=== PATIENT | female | born 1980 | race Caucasian/White ===

== ENCOUNTER 2022-03-08 01:37 | Day surgery (SDC) | payer OTHER, SELFPAY ==
[2022-03-02 10:28] VITALS: BMI 25.8
--- NOTE | 2022-03-02 10:36 | PC.NURSE ---
Report to the Outpatient Waiting Room, entrance under the green pavilion located off [facility], at time 0830 on date 03/08/22. OR Time: 1030. Time changes happen often and if your time is changed the preop area will call you the afternoon before. - You and your visitor will be asked to self-screen and do not enter if you have any COVID symptoms. - Only one visitor and NO children visitors are allowed at this time. - The patient visitor is requested to leave or wait in car when not with patient due to restrictions. - A mask is required within the hospital. Patients may have clear liquids (water, carbonated beverages, clear teas, apple juice) until 3 hours prior to surgery with a maximum of 20 ounces. - No food from midnight until time of surgery Take the following medications with a SIP of water the morning of surgery: NONE Medications to discontinue per physician: VITAMINS/SUPPLEMENTS Date to take last dose: 03/04/[address] PARSON FOR INSTRUCTIONS REGARDING ASPIRIN Please no make-up, nail hebrew, hairspray, perfume, deodorant, or body powder the day of surgery. No jewelry (including any body piercings) or valuables the day of surgery, leave them at home. Please take a shower or bath the night before, or the morning of, surgery with an antibacterial soap. Wear comfortable, loose fitting clothing. - Jewelry must be removed prior to entering the operating room. Rings and piercings that are not removed may be cut off. - The hospital will not accept responsibility for valuables. - Please leave all valuables, including medications, at home the day of surgery. If you are going home after surgery, a licensed company driver must drive you home. - NO public transportation without another adult. - We recommend that an adult stay with you for 24 hours following discharge. - We also recommend that you do not drive, make important decision, drink alcoholic beverages, or take any drugs that were not prescribed by your health care provider for at least 24 hours after your discharge time. Follow any additional instructions given to you from your surgeon. If you or anyone in your household have experienced Covid symptoms in the past week, please notify your surgeon or the nurse liaison at the phone number below for possible testing. Telephone instructions given to PT - TREVON HERRERA and asked if any additional questions and then verbalized understanding. Patient advised to call surgeon office or pre surgery nurse liaison [phone] if any additional questions.
--- NOTE | 2022-03-07 19:56 | PM.IMHP ---
H&P: HPI History of Present Illness Date/Time: 03/07/22 19:56 Chief Complaint: menorrhagia Narrative: Marion is a 41yo P1001, who presented for WWE in September 2021; pap normal 04/2020. She reports her cycles are starting to get much heavier; will soak a super plus tampon every hour. She had an US performed 10/2021 which showed a thickened lining concerning for endometrial polyp measuring 1.2cm. She is sexually active, but has pain. She has suspected endometriosis; reports severe pelvic/back pain/dyspareunia (like a vice around her whole lower abdomen). She tried orilissa last year but had issues with insurance and stopped it. her pain did improve a lot (still had dyspareunia though). It's slowly coming back. She's not sure what she would like to do. Has tried Mirena but had lots of spotting after 6 months. Does have a h/o stroke while smoking and being on OCPs (so cannot take estrogen). Review of Systems Review of Systems: All systems reviewed & are unremarkable except as noted in HPI and below PMFSH Past Medical History Medical History Mitral valve prolapse Stroke (~2016) Surgical History Surgical History H/O breast augmentation [place] teeth removed Family History Family History Mother Family history of malignant neoplasm of skin Social History Social History Years smoked: 10 Smoking status: Former smoker Tobacco type: cigarettes Second hand tobacco smoke exposure: No Smoking end date: 01/15/22 Alcohol intake: current Drinks per week: 10 Alcohol use details: socially Substance use: never Substance use type: does not use Living arrangements: with family Additional occupation/education comments: complex manager Gender identity (if verbalized by the patient): Female Spiritual care concerns: No Meds Home Medications and Allergies Home Medications Medication Instructions Recorded Confirmed Type aspirin 81 mg tablet,delayed 81 mg PO DAILY 09/18/21 03/02/22 History release (Adult Low Dose Aspirin) atorvastatin 10 mg tablet 10 mg PO DAILY 09/18/21 03/02/22 History arginine oxoglurate 350 mg 1,000 mg PO DAILY 03/02/22 03/02/22 History tablet,extended release (L-Arginine (alpha-ketoglutarate)) multivitamin 1 tablet PO DAILY 03/02/22 03/02/22 History Allergies Allergy/AdvReac Type Severity Reaction Status Date / Time No Known Allergies Allergy Unverified 03/02/22 10:26 Exam Const: General: cooperative, healthy appearing, comfortable and no acute distress Resp: Effort & Inspection: normal respiratory effort Cardio: Rate: regular rate GI: Inspection: normal to inspection GI Palp: No abdominal tenderness and Yes Soft to palpation : Other: deferred to OR Skin: General skin exam: normal color Neuro: General: patient oriented x3 Extrem: General: normal to inspection Psych: Appearance: grossly normal Affect: normal affect Attitude: cooperative Assessment and Plan Assessment and plan (1) Endometrial polyp: Code(s): N84.0 - Polyp of corpus uteri Status: Acute Plan - Proceed with hysteroscopy, D&C and polypectomy - Risks and benefits explained in detail - No abx ppx indicated
--- NOTE | 2022-03-08 07:02 | WPDHPUPDATE1 ---
History and Physical Update Update Date/Time: 03/08/22 07:02 History and Physical has been reviewed, including an updated exam of the patient. There are NO changes in the patient's condition. Risks, benefits, and alternatives have been discussed and questions answered. Patient agrees to proceed with procedure.
[2022-03-08] MEDS: ACETAMINOPHEN 500 MG TABLET 1000 MG PO (08:39)
[2022-03-08 08:48] VITALS: BP 145/87; PULSE 84; RESP 16; TEMP 36.8; O2SAT 100
[2022-03-08] MEDS: LACTATED RINGERS 1,000 ML 30 ML IV CONT (09:06)
--- NOTE | 2022-03-08 09:23 | P.PNAN_ITS ---
Anes - Initial Pre Proc Eval Procedure: Operation Date: 03/08/22 10:30 Proposed Procedures p Hysteroscopy Dilation and Curettage with Polypectomy - Stephanie Hyatt MD Date/Time: 03/08/22 09:23 Surgeon: Stephanie Hyatt MD Pre Op Diagnosis: endometrial polyp Patient Data Age: 42 Gender: F Height: 1.78 m Weight: 82.9 kg Last Vital Signs Temp 36.8 C 03/08/22 08:48 Pulse 84 03/08/22 08:48 Resp 16 03/08/22 08:48 BP 145/87 H 03/08/22 08:48 Pulse Ox 100 03/08/22 08:48 O2 Del Method Room Air 03/08/22 08:48 Allergies Allergy/AdvReac Type Severity Reaction Status Date / Time No Known Allergies Allergy Unverified 03/08/22 08:37 Home Medications Medication Instructions Recorded Confirmed Type aspirin 81 mg tablet,delayed 81 mg PO DAILY 09/18/21 03/08/22 History release (Adult Low Dose Aspirin) atorvastatin 10 mg tablet 10 mg PO DAILY 09/18/21 03/08/22 History arginine oxoglurate 350 mg 1,000 mg PO DAILY 03/02/22 03/08/22 History tablet,extended release (L-Arginine (alpha-ketoglutarate)) multivitamin 1 tablet PO DAILY 03/02/22 03/08/22 History Patient hx anesthesia problems: none Family hx anesthesia problems: none Results Review: All pre-operative results and documents have been reviewed as part of the pre- operative evaluation. 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 Informed Consent: The patient's anesthetic plan and its attendant risks and benefits were discussed with the patient/family/POA. Questions were solicited and answers provided to the satisfaction of the patient/family/POA.
[2022-03-08] MEDS: KETOROLAC 30 MG/ML VIAL (*BKC) IV PUSH (09:49)
[2022-03-08 10:18] VITALS: BP 128/84; PULSE 88; RESP 14
--- NOTE | 2022-03-08 10:18 | W.PM.PROC2 ---
Procedure Note - Detailed Date of Procedure 03/08/22 Pre-op Diagnosis endometrial polyp Post-op Diagnosis Same Procedure Performed Hysteroscopy, D&C and polypectomy Surgeon Stephanie Hyatt MD Anesthesia MAC Findings Uterus 9.5cm, normal cervix, bilateral tubal ostia visualized without issue. 1cm polyp arising from the posterior wall, removed. Goood hemostasis at end of case. Fluid deficit of 50cc. Description of Procedure Sandra was taken to the operating room where she was placed under sedation without complications. She was then prepped and draped in the usual sterile fashion in the dorsal lithotomy position with her legs in low Saad stirrups. A time-out was performed and no perioperative antibiotics were indicated. A bivalve speculum was placed within the vagina where the cervix was easily identified. The anterior lip of the cervix was grasped with a single-tooth tenaculum. The cervix was then serially dilated to allow for the hysteroscope. The hysteroscope was advanced into the uterine cavity with the above findings noted. Using polyp forceps the polyp was removed without complications. A curettage was then performed until a good uterine cry was felt throughout the uterus. The hysteroscope was once again advanced into the uterine cavity where it was noted to be normal. Good hemostasis was noted. All instruments were removed from the vagina. Sponge, lap, instrument, and needle counts were correct at the end of the procedure. Patient was awoken from anesthesia and taken to recovery with plans of same-day discharge home. Estimated Blood Loss 5 IV Fluids 700 Pathology Yes (endometrial polyp and endometrial curettings) Complications No immediate complications Condition Stable Disposition Same day [facility] Billing Surgery - Charge Forward: Surgery Billing
[2022-03-08 10:40] VITALS: BP 127/88; PULSE 74; RESP 16
[2022-03-08 11:00] VITALS: BP 122/78; PULSE 63; RESP 16
== END 2022-03-08 11:12 | disposition home or self-care (01) ==
PROVIDERS: PCP Family Medicine Sports Medicine; Visit Provider Obstetrics & Gynecology
PROC: 0U5B8ZZ Destruction of Endometrium, Via Natural or Artificial Opening Endoscopic (ICD-10-PCS; CPT 58563; principal; 2022-03-08 10:30)
DX: N84.0 Polyp of corpus uteri (principal); N94.10 Unspecified dyspareunia; I34.1 Nonrheumatic mitral (valve) prolapse; Z87.891 Personal history of nicotine dependence; Z79.82 Long term (current) use of aspirin; Z86.73 Personal history of transient ischemic attack (TIA), and cerebral infarction without residual deficits
CPT/HCPCS: 58558; 88305; A9270; J1885; J2250; J2405; J2704; J3010; J7120

== ENCOUNTER 2022-06-17 08:38 | Outpatient (CLI) | payer OTHER, SELFPAY ==
--- NOTE | ~2022-06-17 | MM_ITS ---
EXAMINATION: MM scrn praneeth implant BI w veronica HISTORY: Screening mammogram TECHNIQUE: Craniocaudal and mediolateral oblique 3-D tomosynthesis images with implant displacement a nd synthetic 2-D images were generated. Craniocaudal and mediolateral oblique views of the breasts wi thout implant displacement were obtained using full field digital mammography. CAD analysis was submi tted and interpreted. COMPARISON: No prior mammogram is available for comparison at this institution. BREAST PARENCHYMAL COMPOSITION: The breasts are heterogeneously dense, which may obscure small masses . FINDINGS: There is no evidence of suspicious mass, calcification, or architectural distortion to sugg est malignancy in either breast. There has been no suspicious interval change. IMPRESSION: 1. No mammographic evidence of malignancy. 2. Recommend routine screening mammography in one year. BI-RADS Category 1: Negative Reviewed, dictated and finalized at location A. TY COUNCIL DIRECTOR
== END 2022-06-17 08:39 | disposition home or self-care (01) ==
PROVIDERS: PCP Family Medicine Sports Medicine; Visit Provider Obstetrics & Gynecology
DX: Z12.31 Encounter for screening mammogram for malignant neoplasm of breast (principal)
CPT/HCPCS: 77063; 77067

== ENCOUNTER 2023-09-09 08:02 | Outpatient (CLI) | payer OTHER, SELFPAY ==
--- NOTE | 2023-09-09 08:00 | ECG_ITS ---
Measurements Intervals [place] Rate: 78 P: 5 PA: 121 QRS: 95 QRSD: 123 T: 33 QT: 373 QTc: 426 Interpretive Statements SINUS RHYTHM RIGHT BUNDLE BRANCH BLOCK CANNOT RULE OUT SEPTAL INFARCT, AGE INDETERMINATE BASELINE ARTIFACT- II, III, AVR, AVL, AVF, V1-V6 ABNORMAL ECG NO PREVIOUS ECG AVAILABLE FOR COMPARISON Electronically Signed On 09-09-2023 8:54:15 CDT by Jeremie Tanner D.O.
== END 2023-09-09 08:03 | disposition home or self-care (01) ==
LOC: ANHSURGERY 08:06
PROVIDERS: PCP Family Medicine; Visit Provider Obstetrics & Gynecology
DX: E78.00 Pure hypercholesterolemia, unspecified (principal); Z01.818 Encounter for other preprocedural examination; I45.10 Unspecified right bundle-branch block
CPT/HCPCS: 93005

== ENCOUNTER 2023-09-19 01:52 | Day surgery (SDC) | payer OTHER, SELFPAY ==
[2023-09-08 15:11] VITALS: BMI 24.3
--- NOTE | 2023-09-08 15:16 | SUR.PREOP ---
Report to the Outpatient Waiting Room, entrance under the green pavilion located off [facility], at time 0600 on date 09/19/23. Planned Procedure Time: 0730. Time changes happen often and if your time is changed the preop area will call you the afternoon before. - You and your visitor will be asked to self-screen and do not enter if you have any COVID symptoms. - A mask is optional within the hospital at this time. Patients may have clear liquids (water, carbonated beverages, clear teas, apple juice) until 3 hours prior to surgery with a maximum of 20 ounces. - No food from midnight until time of surgery 20 ounces before 0430 am - Infants may have breast milk until 4 hours before surgery, infant formula 6 hours prior to surgery. - Children will be allowed to drink immediately following surgery. If applicable, please bring a bottle or sippy cup to assist with drinking. Juice, water, soda, and popsicles are readily available. For infants on formula, please bring formula the day of surgery. Pacifiers are allowed. Take the following medications with a SIP of water the morning of surgery: ___wellbutrin DO NOT STOP ANY OF YOUR OTHER PRESCRIPTION MEDICATIONS PRIOR TO SURGERY ?EXCEPT THE FOLLOWING Medications to discontinue per physician ___hold multivitamin 3 days prior, hold ASA per surgeon (pt to call office) Date to take last dose Please no make-up, nail namibian, hairspray, perfume, deodorant, or body powder the day of surgery. No jewelry (including any body piercings) or valuables the day of surgery, leave them at home. Please take a shower or bath the night before, or the morning of, surgery with an antibacterial soap. Wear comfortable, loose fitting clothing. Children are encouraged to wear pajamas. - Jewelry must be removed prior to entering the operating room. Rings and piercings that are not removed may be cut off. - The hospital will not accept responsibility for valuables. - Please leave all valuables, including medications, at home the day of surgery. If you are going home after surgery, a licensed emergency vehicle driver must drive you home. - NO public transportation without another adult if you receive anesthesia. - We recommend that an adult stay with you for 24 hours following discharge. - We also recommend that you do not drive, make important decision, drink alcoholic beverages, or take any drugs that were not prescribed by your health care provider for at least 24 hours after your discharge time. For Pediatric surgeries, we recommend two adults accompany the child home. Follow any additional instructions given to you from your surgeon. If you or anyone in your household have experienced Covid symptoms in the past week, please notify your surgeon or the nurse liaison at the phone number below for possible testing. Telephone instructions given to patient and asked if any additional questions and then verbalized understanding. Patient advised to call surgeon office or pre surgery nurse liaison [phone] if any additional questions.
--- NOTE | 2023-09-18 20:00 | PM.IMHP ---
H&P: HPI History of Present Illness Date/Time: 09/18/23 20:00 Chief Complaint: AUB, pelvic pain Narrative: Marion is a 43yo P1001, LMP 09/10/23 who presents for surgical management of AUB and pelvic pain. She had a HSC/D&C/polypectomy 02/2022 and it showed benign polyps. She reports her cycles are very heavy again; wearing a pad and will soak a super plus tampon every hour. Her has a vasectomy. But she has suspected endometriosis (has never had a laparoscopy); reports severe chronic pelvic/back pain/dyspareunia (like a vice around her whole lower abdomen). She tried Orilissa in the past but had issues with insurance and stopped it (her pain did improve a lot but still had dyspareunia). She tried POP and reports it didn't help the pain, made her bleeding party director but just very irregular, and affected her mood. She has a h/o stroke while smoking and being on OCPs (so she cannot take estrogen). She is wanting to proceed with surgical management. Review of Systems Constitutional: Constitutional: Denies chills, Denies fever(s) and Denies headache(s) Eyes: Eyes: Denies change in vision ENT: Denies dizziness and Denies headache(s) Cardiovascular: Cardiovascular: Denies chest pain and Denies dyspnea Respiratory: Respiratory: Denies cough and Denies dyspnea Gastrointestinal: Gastrointestinal: Denies abdominal pain and Denies change in stool character Genitourinary: Genitourinary: Reports abnormal menses, Reports menorrhagia, Reports pelvic pain, Denies vaginal discharge, Denies vaginal odor and Denies vaginal pruritus Neurologic: Denies dizziness and Denies headache(s) Psychiatric: Psychiatric: Denies anxiety and Denies depression [facility] Past Medical History Medical History Mitral valve prolapse Stroke (~2016) Surgical History Surgical History H/O breast augmentation [place] teeth removed Family History Family History Mother Family history of malignant neoplasm of skin Social History Social History (Updated 07/15/23 @ 09:47 by Cassandra Covarrubias MA) Years smoked: 10 Smoking status: Never smoker Tobacco type: cigarettes Second hand tobacco smoke exposure: No Smoking end date: 01/15/22 Alcohol intake: current Drinks per week: 10 Alcohol use details: socially Substance use: never Substance use type: does not use Do You Feel Safe in your Home?: Yes Lack of Transportation: No Lack of Food: Never True Current Housing: I Have Housing Concerned About Future Housing: No Difficulty Paying Gas/Electric Bills: No Difficulty Paying for Meds: No Currently Unemployed: No Education: Bachelor's Degree Difficulty w/ Childcare or Family Care: No Living arrangements: with family Occupation/Education: occupation 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 Gender identity (if verbalized by the patient): Female Sexual Orientation (if Verbalized by the Patient): Straight or Heterosexual Spiritual care concerns: No Meds Home Medications and Allergies Home Medications Medication Instructions Recorded Confirmed Type aspirin 81 mg tablet,delayed 81 mg PO HS 09/18/21 09/08/23 History release (Adult Low Dose Aspirin) atorvastatin 10 mg tablet 10 mg PO HS 09/18/21 09/08/23 History multivitamin 1 tablet PO DAILY 03/02/22 09/08/23 History bupropion HCl 150 mg tablet,12 hr 150 mg PO DAILY 07/15/23 09/08/23 History sustained-release (Wellbutrin SR) Allergies Allergy/AdvReac Type Severity Reaction Status Date / Time No Known Allergies Allergy Unverified 07/15/23 09:46 Exam Const: General: cooperative, healthy appearing, comfortable and no acute distress Orientation/consciousness: patient oriented x3 Resp: Effort & Inspection: normal respiratory effort Cardio: Rate: regular rate GI: Inspection: normal
[2023-09-19] VITALS (11 sets, daily range): BP systolic 106–136; BP diastolic 67–89; PULSE 66–90; RESP 12–18; TEMP 36.2–36.4; O2SAT 93–100; BMI 24.8
[2023-09-19] MEDS: ACETAMINOPHEN 500 MG TABLET 1000 MG PO (06:40)
[2023-09-19] MEDS: KETOROLAC 15 MG/ML VIAL (*BKC) IV PUSH (06:40)
[2023-09-19] MEDS: LACTATED RINGERS 1,000 ML 30 ML IV CONT ×2 (06:45→09:14)
--- NOTE | 2023-09-19 07:11 | WPDHPUPDATE1 ---
History and Physical Update Update Date/Time: 09/19/23 07:11 History and Physical has been reviewed, including an updated exam of the patient. There are NO changes in the patient's condition. Risks, benefits, and alternatives have been discussed and questions answered. Patient agrees to proceed with bilateral salpingectomy, hysteroscopy, D&C and endometrial ablation, with possible fulguration/removal of endometriosis, possible lysis of adhesions.
--- NOTE | 2023-09-19 07:13 | WPDANESEPPF ---
Anes - Initial Pre Proc Eval Procedure: Operation Date: 09/19/23 07:30 Proposed Procedures p Hysteroscopy Dilation and Curettage with [place] Endometrial Ablation, - Stephanie Hyatt MD s Bilateral Laparoscopic Salpingectomy with Fulguration of Endometriosis - Stephanie Hyatt MD Date/Time: 09/19/23 07:13 Surgeon: Stephanie Hyatt MD Pre Op Diagnosis: abnormal bleeding, pelvic pain Patient Data Age: 43 Gender: F Height: 1.78 m Weight: 78.5 kg Last Vital Signs Temp 97.6 F 09/19/23 06:50 Pulse 76 09/19/23 06:50 Resp 16 09/19/23 06:50 BP 136/89 09/19/23 06:50 Pulse Ox 100 09/19/23 06:50 O2 Del Method Room Air 09/19/23 06:50 Allergies Allergy/AdvReac Type Severity Reaction Status Date / Time No Known Allergies Allergy Verified 09/19/23 06:37 Home Medications Medication Instructions Recorded Confirmed Type aspirin 81 mg tablet,delayed 81 mg PO HS 09/18/21 09/19/23 History release (Adult Low Dose Aspirin) atorvastatin 10 mg tablet 10 mg PO HS 09/18/21 09/19/23 History multivitamin 1 tablet PO DAILY 03/02/22 09/19/23 History bupropion HCl 150 mg tablet,12 hr 150 mg PO DAILY 07/15/23 09/19/23 History sustained-release (Wellbutrin SR) Patient hx anesthesia problems: none Family hx anesthesia problems: none Results Review: All pre-operative results and documents have been reviewed as part of the pre-operative evaluation. [facility] Past Medical History Medical History Mitral valve prolapse Stroke (~2016) Surgical History Surgical History H/O breast augmentation [place] teeth removed Family History Family History Mother Family history of malignant neoplasm of skin Social History Social History (Updated 07/15/23 @ 09:47 by Cassandra Covarrubias MA) Years smoked: 10 Smoking status: Never smoker Tobacco type: cigarettes Second hand tobacco smoke exposure: No Smoking end date: 01/15/22 Alcohol intake: current Drinks per week: 10 Alcohol use details: socially Substance use: never Substance use type: does not use Do You Feel Safe in your Home?: Yes Lack of Transportation: No Lack of Food: Never True Current Housing: I Have Housing Concerned About Future Housing: No Difficulty Paying Gas/Electric Bills: No Difficulty Paying for Meds: No Currently Unemployed: No Education: Bachelor's Degree Difficulty w/ Childcare or Family Care: No Living arrangements: with family Occupation/Education: occupation 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 Gender identity (if verbalized by the patient): Female Sexual Orientation (if Verbalized by the Patient): Straight or Heterosexual Spiritual care concerns: No Anes - Eval Final PreProcedure Day of Procedure 09/19/23 07:13 Patient weight: normal Heart: regular rate and rhythm Lungs: clear to auscultation Airway: Mallampati scale Neurological: alert and oriented Last oral intake: >/= 8 hours ASA classification: II Emergent: no Anesthetic plan: proceed Anesthesia type and monitoring: general ETT and standard monitoring Results Review: All pre-operative results and documents have been reviewed as part of the pre-operative evaluation. Informed Consent: The patient's anesthetic plan and its attendant risks and benefits were discussed with the patient/family/POA. Questions were solicited and answers provided to the satisfaction of the patient/family/POA.
[2023-09-19] MEDS: BUPIVACAINE/EPINEPHRINE 0.5% 10 ML VIAL 30 ML INFILTRATE (08:03)
--- NOTE | 2023-09-19 09:19 | W.PM.PROC2 ---
Procedure Note - Detailed Date of Procedure 09/19/23 Pre-op Diagnosis abnormal bleeding, pelvic pain Post-op Diagnosis Same (endometriosis, scar tissue) Procedure Performed Laparoscopic bilateral salpingectomy, lysis of adhesions, fulguration of endometriosis, hysteroscopy, D&C, with Lorena endometrial ablation Surgeon Stephanie Hyatt MD Branch Operations Manager John Anesthesia General and Local (20cc of 0.5% Marcaine w/ epi) Findings Uterus 9cm, cervix 5.5cm; left ovarian cyst (hemorrhagic) with ~10cc of blood in the cul de sac-- which was partially drained when manipulating the ovary. Left tube with small paratubal cyst. Right fallopian tube and ovary normal. Endometriosis noted on bladder, posterior cul de sac, bilateral lower pelvic side ortiz; posterior uterus, bilateral uterosacral ligaments-- all which were fulgurated. Right colon noted to have significant adhesions to the pelvic and anterior abdominal wall-- which was taken down. The appendix was noted to be diffusely scared down retrocecally. Diffusely thickened endometrium; at least 2 endometrial polyps identified. Bilateral tubal ostia visualized. Lorena endometrial ablation performed without issue. Good hemostasis at end of case. Description of Procedure Marion was taken to the operating room where she was placed under general endotracheal anesthesia without complications. She was then prepped and draped in the usual sterile fashion in the dorsal lithotomy position with her legs in low Saad stirrups and her arms tucked at her side with a strap over her chest. A time-out was performed and no preoperative antibiotics were indicated. My attention was turned down below where a Bauman catheter was placed under aseptic technique. A bivalve speculum was then placed within the vagina where the cervix was easily identified. The anterior lip of the cervix was grasped with a single-tooth tenaculum, the uterus was sounded, and a diagnostic uterine manipulator was placed without complications. My gloves were changed and my attention was turned to her abdomen. An umbilical incision was made, and a 5 mm trocar was placed under direct visualization without complications. Once intra-abdominal placement was confirmed the abdomen was insufflated with carbon dioxide gas. She was then placed in Trendelenburg and two additional 5 mm ports were placed in the left and right lower quadrants under direct visualization without complications. The above findings were noted. The colonic adhesions to the anterior abdominal and pelvic side ortiz were slowly and carefully taken down using the LigaSure device; only small amounts of bipolar heat were used before cutting the adhesions. The colon was released and good hemostasis was noted after approximately 30 minutes of lysis of adhesions. The endometriosis implants were fulgurated using the monopolar hook and good hemostasis was noted. While attempting to manipulate the left ovary, the cyst was punctured and a small amount of bleeding was noted. Using the bipolar heat, the bleeding was coagulated and monitored closely. The right fallopian tube was then elevated and the mesosalpinx was serially clamped, coagulated, transected using the LigaSure device until the proximal end of the fallopian tube was reached. The proximal end of the fallopian tube was cross clamped, coagulated and transected. The tube was then removed from the abdomen. The same procedure was then performed on the left side without any complications. Good hemostasis was noted. The left ovary was irrigated and examined and no further bleeding was noted. The pelvic was copiously irrigated and suctioned free of fluid and blood. All instruments were removed from the abdomen. The insufflation was released and the trocars were removed. The 3 laparoscopic incision sites were reapproximated using 4-0 Monocryl and covered with Dermabond. The incisions were then infiltrated using 0.5% Marcaine. My attention was turned down below;
[2023-09-19] MEDS: ONDANSETRON INJ 4 MG/2 ML VIAL IV PUSH (10:01)
[2023-09-19] MEDS: diphenhydrAMINE HCl INJ 50 MG/ML VIAL 12.5 MG IV PUSH ×2 (10:45→11:09)
== END 2023-09-19 12:10 | disposition home or self-care (01) ==
PROVIDERS: PCP Family Medicine; Visit Provider Obstetrics & Gynecology
PROC: 0U5B8ZZ Destruction of Endometrium, Via Natural or Artificial Opening Endoscopic (ICD-10-PCS; CPT 58563; principal; 2023-09-19 07:30)
PROC: (CPT 49320; 2023-09-19 07:30)
DX: N92.0 Excessive and frequent menstruation with regular cycle (principal); N83.202 Unspecified ovarian cyst, left side; N83.8 Other noninflammatory disorders of ovary, fallopian tube and broad ligament; N80.A0 Endometriosis of bladder, unspecified depth; N80.329 Endometriosis of the posterior cul-de-sac, unspecified depth; N80.353 Endometriosis of bilateral pelvic sidewall, unspecified depth; N80.3C3 Endometriosis of bilateral uterosacral ligament(s), unspecified depth; N73.6 Female pelvic peritoneal adhesions (postinfective); Z79.82 Long term (current) use of aspirin; Z98.890 Other specified postprocedural states; Z86.79 Personal history of other diseases of the circulatory system; Z84.0 Family history of diseases of the skin and subcutaneous tissue
CPT/HCPCS: 58662; 58563; 88302; 88305; 93005; A9270; J0360; J1100; J1200; J1885; J2250; J2405; J2704; J3010; J7120

== ENCOUNTER 2023-11-07 07:19 | Outpatient (CLI) | payer OTHER, SELFPAY ==
--- NOTE | ~2023-11-07 | MM_ITS ---
EXAMINATION: MM scrn praneeth implant BI w veronica HISTORY: Screening mammogram TECHNIQUE: Craniocaudal and mediolateral oblique 3-D tomosynthesis images with implant displacement a nd synthetic 2-D images were generated. Craniocaudal and mediolateral oblique views of the breasts wi thout implant displacement were obtained using full field digital mammography. CAD analysis was submi tted and interpreted. COMPARISON: Comparison to multiple prior studies sequentially, with oldest reviewed study dated 05/21. BREAST PARENCHYMAL COMPOSITION: Not dense: There are scattered areas of fibroglandular density. FINDINGS: There is no evidence of suspicious mass, calcification, or architectural distortion to sugg est malignancy in either breast. There has been no suspicious interval change. IMPRESSION: 1. No mammographic evidence of malignancy. 2. Recommend routine screening mammography in one year. BI-RADS Category 1: Negative Reviewed, dictated and finalized at location A.
== END 2023-11-07 07:20 | disposition home or self-care (01) ==
LOC: ANHIMG 07:21
PROVIDERS: PCP Family Medicine; Visit Provider Obstetrics & Gynecology
DX: Z12.31 Encounter for screening mammogram for malignant neoplasm of breast (principal)
CPT/HCPCS: 77063; 77067

== ENCOUNTER 2025-03-13 07:00 | Outpatient (CLI) | payer OTHER, SELFPAY ==
--- NOTE | ~2025-03-13 | MM_ITS ---
EXAMINATION: MM scrn praneeth implant BI w veronica INDICATION: Asymptomatic, referred for screening mammogram COMPARISON: 11/07/2023 and 06/17/2022 TECHNIQUE: Digital Breast Tomosynthesis CC, MLO, and implant displaced CC and MLO views of Both breasts were obtained with computer-aided detection to assist in interpretation of the study. FINDINGS: The breasts are heterogeneously dense, which may obscure small masses. Bilateral breast Retropectoral Silicone implants in place appears intact. No focal dominant mass, architectural distortion, or suspicious microcalcifications are identified. There are no features to suggest malignancy. IMPRESSION: 1. No evidence of malignancy in the breasts. 2. Both breasts Retropectoral Silicone implants appears intact. Recommend continued screening mammography BI-RADS 1, NEGATIVE Reviewed, dictated and finalized at location B.
--- OUTSIDE RECORDS SUMMARY | 2025-03-13 07:04 | XMS_ITS | Clinical Summary ---
Author Organization [facility] Address [address] [place] [address] Care Team Providers Care Associate Marketing Manager Name Role Phone Unavailable Primary Care Provider Unavailabl e Source Comments [facility],non-owned Affiliates and Associated Physician Practices is amultiple site organization consisting of ambulatory clinics and hospital sitesin [place], [place], [place] and [place]. This disclosure is being madepursuant to the Care Everywhere program and may not contain all information available regarding this patient. Last updated 18.[facility] Allergies No known active allergies Medications * Be aware that medications may not be up to date on this document. Alwaysverify current medications with the patient. atorvastatin (LIPITOR) 10 MG tablet Take 10 mg by mouth at bedtime Active aspirin (ASPIRIN) 81 MG tablet Take 81 mg by mouth once daily Active Social History Tobacco Use Types Packs/Day Years Used Date Smoking Tobacco: Former Smokeless Tobacco: Never Comments No Sex and Gender Information Value Date Recorded Sex Assigned at Not on file Legal Sex Female 7:13 AM GAMING TABLE OPERATOR Gender Identity Not on file Sexual Orientation Not on file Last Filed Vital Signs Vital Sign Reading Time Taken Comments Blood Pressure 126/80 05/10/2018 8:23 AM GAMING TABLE OPERATOR Pulse 72 05/10/2018 8:23 AM GAMING TABLE OPERATOR Temperature 37.1 C (98.7 F) 05/10/2018 8:23 AM GAMING TABLE OPERATOR Respiratory Rate - - Oxygen Saturation 98% 05/10/2018 8:23 AM GAMING TABLE OPERATOR Inhaled Oxygen Concentration - - Weight 77.1 kg (170 lb) 05/10/2018 8:23 AM GAMING TABLE OPERATOR Height 177.8 cm (5' 10) 05/10/2018 8:23 AM GAMING TABLE OPERATOR Body Mass Index 24.39 05/10/2018 8:23 AM GAMING TABLE OPERATOR Plan of Treatment Health Maintenance Due Date Last Done Comments MAMMOGRAM 1982 HIV SCREENING 1997 HEPATITIS C SCREENING 01/04/2000 DTAP/TDAP/TD VACCINES (1 - Tdap) 2001 HEPATITIS B VACCINE (1 of 3 - 19+ 3-dose series) 2001 PAP SMEAR 2003 HPV VACCINE (1 - 3-dose SCDM series) 2009 DEPRESSION SCREENING 06/20/2024 COVID-19 VACCINE ( - 2023-2 5 season) 2025 INFLUENZA VACCINE (#1) 2025 ZOSTER VACCINE (1 of 2) 01/09/2032 HIB VACCINE Aged Out No longer eligi ble based on patient's age to complete this topic MENINGOCOCCAL (Group B) VACC INE SHARED DECISION-MAKING Aged Out No longer eligibl e based on patient's age to complete this topic MENINGOCOCCAL GROUPS A/C/Y/W VACCINE Aged Out No longer eligible b ased on patient's age to complete this topic PNEUMOCOCCAL VACCINE Aged Out No long er eligible based on patient's age to complete this topic Insurance [facility] SELF PAY NO INSURANCE Member Subscriber Plan / Payer (Ef fective for All Dates) Name:Marion Parada Member ID:Not on file Relation to Subscriber:Not on file Name:MARION WISE Subscriber ID:Not on file Address: [facility] [place] [address] Payer ID:Not on file Group ID:Not on file Type:Self Pay Address: [place] [address] [facility] SELF PAY NO INSURANCE Member Subscriber Plan / Payer (Ef fective for All Dates) Name:Marion Parada Member ID:Not on file Relation to Subscriber:Not on file Name:MARION WISE Subscriber ID:Not on file Address: [address] [place] [address] Payer ID:Not on file Group ID:Not on file Type:Self Pay Address: [place], [place] [facility] SELF PAY NO INSURANCE Member Subscriber Plan / Payer (Ef fective for All Dates) Name:Marion Parada Member ID:Not on file Relation to Subscriber:Not on file Name:MARION WISE Subscriber ID:Not on file Address: [address] [place] [address] Payer ID:Not on file Group ID:Not on file Type:Self Pay Address: [place], [place]
--- OUTSIDE RECORDS SUMMARY | 2025-03-13 07:04 | XMS_ITS | Clinical Summary ---
Author Organization [facility] Address [address] [place] [id number] Care Team Providers Care Nurse Companion Name Role Phone Ty George MD Primary Care Provider Allergies No known active allergies Medications ALPRAZolam (XANAX) 0.25 mg tablet alprazolam 0.25 mg tablet Active atorvastatin (LIPITOR) 10 mg tablet atorvastatin 10 mg tablet Active buPROPion XL (WELLBUTRIN XL) 150 mg 24 hr tablet Active aspirin 81 mg enteric coated tablet Take 1 tablet (81 mg total) by mouth daily Active Active Problems Problem Noted Date Diagnosed Date Sensorineural hearing loss ( SNHL) of left ear with unrestricted hearing of right ear 02/08/2025 Assessment & Plan (02/09/2025 6:57 PM CDT): Right benign positional vertigo treated with Jr maneuver today Stop Vestibular exercises Hearing test today: mild hearing loss, protect hearing loss Post-Jr instructions discussed and Handout provided Encounters Date Type Department Care Team Description 02/08/2025 10:30 AM CDT Procedure visit [facility] at [address] [place] [address] Letha Bobby Au.D. Sensorineural hearing loss (SNHL) of left ear with unrestricted hearing of right ear (Primary Dx) 02/08/2025 9:30 AM CDT Office Visit [facility] - [address] [place] [address] Liilan Gutierrez DO Sensorineural hearing loss (SNHL) of left ear with unrestricted hearing of right ear (Primary Dx) from Last 3 Months Surgical History Surgery Date Site/Laterality Comments COMBINED AUGMENTATION MAMMAPLASTY AND ABDOMINOPLASTY Medical History Medical History Date Comments Stroke (HCC) Social History Tobacco Use Types Packs/Day Years Used Date Smoking Tobacco: Light Smoker Smokeless Tobacco: Never Alcohol Use Standard Drinks/Week Comments Yes 0 (1 standard drink = 0.6 oz pur e alcohol) Comments Unknown Sex and Gender Information Value Date Recorded Sex Assigned at Not on file Legal Sex Female 3:52 AM ROCK MASON Gender Identity Not on file Sexual Orientation Not on file Obstetrics History Last Filed Vital Signs Vital Sign Reading Time Taken Comments Blood Pressure 131/87 02/08/2025 9:18 AM CDT Pulse 84 02/08/2025 9:18 AM CDT Temperature 37.8 C (100.1 F) 06/15/2024 8:26 AM ROCK MASON Respiratory Rate 18 02/08/2025 9:18 AM CDT Oxygen Saturation 98% 02/08/2025 9:18 AM CDT Inhaled Oxygen Concentration - - Weight 81.2 kg (179 lb) 02/08/2025 9:18 AM CDT Height 177.8 cm (5' 10) 02/08/2025 9:18 AM CDT Body Mass Index 25.68 02/08/2025 9:18 AM CDT Plan of Treatment Health Maintenance Due Date Last Done Comments Breast Cancer Screening-Mammogram 1982 Cervical Cancer Screening 1982 Depression Screening 1982 Hepatitis C Screening 1982 DTaP/Tdap/Td Vaccine (1 - Tdap) 1993 Varicella Vaccines (1 of 2 - 13+ 2-dose series) 1994 Hepatitis B Screening 01/09/2000 Regular Well Visit/Exam 18-64 01/09/2000 Pneumococcal vaccine <65 (1 of 2 - PCV) 2001 HPV Vaccines (1 - 3-dose SCDM series) 2009 Influenza Vaccine (#1) 2025 Procedures Procedure Name Priority Date/Time Associated Diagnosis Comments AUDIOGRAM Routine 02/08/2025 10:30 AM CDT Sensorineural hearing loss (SNHL) of left ear with unrestricted hearing of right ear from Last 3 Months Results * AUDIOGRAM (02/08/2025 10:30 AM CDT) Narrative Letha Bobby Au.D. - 02/08/2025 10:30 AM CDT Letha Bobby Au.D. 02/08/2025 2:52 PM Audiogram Performed by: Letha Bobby Au.D. Authorized by: Lilian Gutierrez DO Lilian Gutierrez DO AUDIOLOGY SERVICES ORDERABLE S Final Result from Last 3 Months Insurance [facility] [employer] PLUS [facility] [place] [address] Care Teams Nurse Companion Relationship Specialty Start Date End Date Ty George MD [address] [id number] PCP - General Family Medicine 11/30/24
== END 2025-03-13 07:01 | disposition home or self-care (01) ==
LOC: ANHFOHIMG 07:02
PROVIDERS: PCP Family Medicine; Visit Provider Obstetrics & Gynecology
DX: Z12.31 Encounter for screening mammogram for malignant neoplasm of breast (principal)
CPT/HCPCS: 77063; 77067